=== PATIENT | male | born 1995 | race Caucasian/White ===

== ENCOUNTER 2017-08-09 21:00 | Emergency (ER) | payer OTHER ==
[~2017-08-09] VITALS: Ht 185.4 cm; Wt 70.5 kg
[2017-08-09 21:01] VITALS: BP 126/66; PULSE 67; RESP 16; TEMP 98.2; O2SAT 97
[2017-08-09] MEDS ORDERED: CYCL10TA PO (22:15)
[2017-08-09] MEDS ORDERED: DICL75TA PO (22:15)
[2017-08-09] MEDS ORDERED: ACETAMINOPHEN/HYDROcodone 325 MG/5 MG TAB PO ONE (22:15)
[2017-08-09] MEDS ORDERED: CYCLOBENZAPRINE HCL 10 MG TAB PO ONE (22:15)
--- NOTE | 2017-08-09 22:22 | PD ---
HPI Chief Complaint: Back/ Neck Pain or Injury Time Seen by Provider: 22:05 Travel History International Travel<30 days: No Contact w/Intl Traveler<30days: No Traveled to known affect area: No History of Present Illness HPI 21-year-old white male presents to emergency department with complaints of lower back pain. He states that he has had 2 episodes of lower back pain over last 2 weeks. He's had a history of chronic lower back pain. 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 He has taken ibuprofen with some temporary relief. He had planned on going to an card services specialist did his pain. He also states that he went to a massage therapist today which didn' t seem to help his pain. He states he has been doing a lot of driving for multiple hours and feels that this is aggravated his back. He denies any acute bowel or bladder changes. No numbness, tingling or weakness. Pain is mild currently but was moderate earlier. Exacerbated by sitting for long periods of time. Some relief with ibuprofen and being upright. PFSH Past Medical History Narrative Medical Scoliosis, chronic back pain Tetanus Vaccination: > 5 Years Influenza Vaccination: No Past Surgical History Surgical History: No Previous Surgery Social History Alcohol Use: Yes (OCC) Tobacco Use: No Substance Use: No Allergies-Medications (Allergen,Severity, Reaction): Coded Allergies: No Known Allergies (Unverified Adverse Reaction, Unknown, 08/09/17) Reported Meds & Prescriptions Reported Meds & Active Scripts Active No Active Prescriptions or Reported Medications Review of Systems General / Constitutional: No: Fever Eyes: No: Visual changes HENT: No: Headaches Cardiovascular: No: Chest Pain or Discomfort Respiratory: No: Shortness of Breath Gastrointestinal: No: Abdominal Pain Genitourinary: No: Dysuria Musculoskeletal: Positive: Arthralgias, Limited ROM, Pain, No: Weakness, Cramping, Edema Skin: No Rash Neurologic: No: Weakness Psychiatric: No: Depression Endocrine: No: Polydipsia Hematologic/Lymphatic: No: Easy Bruising Physical Exam Narrative GENERAL: Well-developed, well-nourished in no apparent distress. Nontoxic appearing. HEAD: Normocephalic, atraumatic. EYES: Pupils equal round and reactive. Extraocular motions intact. No scleral icterus. No injection or drainage. ENT: Nose clear. Throat without erythema, tonsillar hypertrophy or exudate. Uvula midline. Airway patent. NECK: Trachea midline. Supple, nontender, moves head freely. No central bony tenderness or spasm. CARDIOVASCULAR: Regular rate and rhythm without murmurs, gallops, or rubs. RESPIRATORY: Clear to auscultation. Breath sounds equal bilaterally. No wheezes , rales, or rhonchi. GASTROINTESTINAL: Abdomen soft, non-tender, nondistended. No hepato-splenomegaly , or palpable masses. No guarding. EXTREMITIES: No clubbing, cyanosis, or edema. No joint tenderness. BACK: No central bony tenderness to palpation of the dorsal lumbar spine. Patient has decreased for flexion to 70. Patient is able to heel and toe stand. No saddle anesthesia. Complains of bilateral paralumbar tenderness and into both SI joints. Without deformity. No flank tenderness. NEUROLOGICAL: Awake, alert and oriented x 3 .Cranial nerves grossly intact. Motor and sensory grossly within normal limits. Normal speech. Data Data Last Documented VS Vital Signs Date Time Temp Pulse Resp B/P (MAP) Pulse Ox O2 Delivery O2 Flow Rate FiO2 08/09/17 21:01 98.2 67 16 126/66 (86) 97 Room Air Orders Orders Acetamin-Hydrocod 325-5 Mg ([place] 5-325 (08/09/17 22:15) Cyclobenzaprine (Flexeril) (08/09/17 22:15) [facility] Medical Decision Making Medical Screen Exam Complete: Yes Emergency Medical Condition: Yes Medical Record Reviewed: Yes Differential Diagnosis MDM: High Differential diagnoses: Fracture, sprain, strain, HNP, nerve or vascular injury , epidural abscess, pilonidal cyst Narrative Course Patient states that he has scoliosis and he has had an x-ray in the past. There is no direct trauma. He states that this is similar type pain that he's had in the past. Patient given one Lortab 5 a grams by mouth and Flexeril 10 or grams by mouth. This is acute exacerbation of chronic back pain Diagnosis Primary Impression: Acute exacerbation of chronic low back pain Patient Instructions: General Instructions Additional Instructions: Rest. Ice for the next 3 days followed by heat . Flexeril and Voltaren. Follow-up with a primary care doctor in one week. Return to the ER for emergencies. Med/Other Pt SpecificInfo: Prescription(s) given Scripts Cyclobenzaprine (Flexeril) 10 Mg Tab 10 MG PO TID for Muscle Spasm, #30 TAB 0 Refills Prov: James Pak MD 08/09/[address] (Diclofenac Sodium DR) 75 Mg Tabdr 75 MG PO BID, #20 TAB 0 Refills Prov: James Pak MD 08/09/17 Disposition: 01 DISCHARGE HOME Condition: Stable Kyle Estrada Aug 09, 2017 22:22
== END 2017-08-09 22:57 | disposition home or self-care (01) ==
LOC: NEPD 21:00
DX: M54.5 Low back pain (principal); G89.29 Other chronic pain; M41.9 Scoliosis, unspecified
CPT/HCPCS: 99284